=== PATIENT | female | born 1990 | race Caucasian/White ===

== ENCOUNTER → 2017-04-25 | Outpatient (CLI) | payer BC | LOC: SUN.DIA 08:50 | DX: O24.419 Gestational diabetes mellitus in pregnancy, unspecified control (principal); Z3A.31 31 weeks gestation of pregnancy; Z71.3 Dietary counseling and surveillance | CPT/HCPCS: G0108 ==

== ENCOUNTER → 2017-04-27 | Outpatient (CLI) | payer BC ==
[~2017-04-27] MED LIST: DULCOLAX STOOL100 MG PO; MELATONIN1 MG PO; NORCO 325 MG-51 TAB PO; PRENATAL MVI; PROTONIX 40MG T40 MG PO
== END ==
LOC: SUN.DIA 08:45
DX: O24.419 Gestational diabetes mellitus in pregnancy, unspecified control (principal); Z3A.31 31 weeks gestation of pregnancy; Z71.3 Dietary counseling and surveillance
CPT/HCPCS: G0108

== ENCOUNTER 2017-05-02 10:20 | Inpatient (IN) | payer BC ==
[~2017-05-02] VITALS: Ht 165.7 cm; Wt 101.4 kg
[2017-06-24] VITALS (17 sets, daily range): BP systolic 111–1121; BP diastolic 59–82; PULSE 77–120; TEMP 98–98.1
[2017-06-24] MEDS ORDERED: DULCOLAX STOOL100 MG PO (09:24)
[2017-06-24] MEDS ORDERED: PRENATAL MVI (09:24)
[2017-06-24] MEDS ORDERED: PROTONIX 40MG T40 MG PO (09:25)
[2017-06-24] MEDS ORDERED: MELATONIN1 MG PO (09:25)
[2017-06-24] MEDS ORDERED: NORCO 325 MG-51 TAB PO (09:26)
[2017-06-24 10:05] LABS: BASO % 0.2 % (0.0-2.0); EOS # 0.1 (0.0-0.7); EOS % 0.8 % (0-4.0); GRAN # 9.3 (1.4-6.5); GRAN % 71.7 % (42.2-75.2); HEMATOCRIT 37.9 % (37.0-47.0); HEMOGLOBIN 12.8 g/dl (12.5-16.0); LYMPH # 2.7 (1.2-3.4); LYMPH % 20.8 % (20.0-51.0); MEAN CELL VOLUME 87 fl (80.0-100.0); MEAN CORPUSCULAR HEMOGLOBIN 30 pg (27.0-31.0); MEAN CORPUSCULAR HGB CONC 34 g/dl (33.0-37.0); MEAN PLATELET VOLUME 11.2 fl (7.4-10.4); MONO # 0.8 (0.1-0.6); PLATELET COUNT 252 K/mm3 (130-400); RED BLOOD COUNT 4.34 M/mm3 (4.10-5.30); REDCELL DISTRIBUTION WIDTH-CV 13.7 % (11.5-14.5); WHITE BLOOD COUNT 13.1 K/mm3 (4.8-10.8)
[2017-06-24 10:21] LABS: ADJUSTED CALCIUM 9.6 mg/dL (8.4-10.2); ALBUMIN 3.6 gm/dL (3.5-5.0); BILIRUBIN,TOTAL 0.7 mg/dL (0.0-1.0); CALCIUM 9.3 mg/dL (8.4-10.2); CREATININE, serum 0.54 mg/dL (0.52-1.25); POTASSIUM 4.2 mmol/L (3.4-5.0); TOTAL PROTEIN 6.5 gm/dL (6.4-8.2)
[2017-06-25 06:56] LABS: HEMATOCRIT 34.1 % (37.0-47.0); HEMOGLOBIN 11.4 g/dl (12.5-16.0)
[2017-06-25 08:00] VITALS: BP 132/67; PULSE 97; TEMP 98.7
[2017-06-25 18:30] VITALS: BP 138/78; PULSE 85; TEMP 98.1
[2017-06-25 21:00] VITALS: BP 132/80; PULSE 85; TEMP 98.9
[2017-06-26 08:31] VITALS: BP 144/77; PULSE 91; TEMP 98.3
[2017-06-26 15:48] VITALS: BP 136/71; PULSE 90; TEMP 98.5
[2017-06-26 20:10] VITALS: BP 118/72; PULSE 77; TEMP 98.7
[2017-06-27 08:15] VITALS: BP 136/74; PULSE 79; TEMP 98.2
[2017-06-27] MEDS ORDERED: MOTRIN 600600 MG/TAB PO (08:50)
[2017-06-27] MEDS ORDERED: PERCOCET 325 MG1 TA2 PO (08:51)
== END 2017-06-27 13:00 | disposition home or self-care (01) | DRG 766 ==
LOC: EDSTATUS 06-17 07:28 → LDRO 06-17 10:20 → OB 06-24 07:29
PROVIDERS: Obstetrics & Gynecology
PROC: 10D00Z1 Extraction of Products of Conception, Low, Open Approach (ICD-10-PCS; principal; 2017-06-24)
DX: O32.1XX0 Maternal care for breech presentation, not applicable or unspecified (principal); O43.123 Velamentous insertion of umbilical cord, third trimester; O24.420 Gestational diabetes mellitus in childbirth, diet controlled; Z3A.39 39 weeks gestation of pregnancy; O14.04 Mild to moderate pre-eclampsia, complicating childbirth; Z37.0 Single live birth
CPT/HCPCS: J0690; J1885; J2175; J2270; J2370; J2405; J2590; J7120

== ENCOUNTER → 2018-12-18 | Outpatient (CLI) | payer BC ==
[~2018-12-18] MED LIST changes: +MOTRIN 600600 MG/TAB PO; +PERCOCET 325 MG1 TA2 PO
== END ==
LOC: SUN.DIA 10:47
DX: O24.419 Gestational diabetes mellitus in pregnancy, unspecified control (principal); Z3A.35 35 weeks gestation of pregnancy
CPT/HCPCS: G0108

== ENCOUNTER 2019-03-02 09:45 | Inpatient (IN) | payer BC ==
[2019-03-02] VITALS (51 sets, daily range): BP systolic 104–139; BP diastolic 53–93; PULSE 77–131; TEMP 98–99.2
[~2019-03-02] VITALS: Ht 165.1 cm; Wt 100.0 kg
--- NOTE | 2019-03-02 10:00 | NUR ---
0940- Pt arrives on unit, ambulatory, with for labor check. Pt into bathroom to change into gown. 45- Pt into bed, EFM and TOCO on and tracing. Pt states her UCs started around 0500 today. Possible TOLAC if in active labor. States she has not felt baby move much today. Denies complications with except for GDM, diet controlled, states BSs WNL.
--- NOTE | 2019-03-02 10:30 | NUR ---
1018- Roles at bedside, discusses options of TOLAC and repeat C/S. Pt desires JAY, supportive of decision.
--- NOTE | 2019-03-02 11:00 | NUR ---
Sits up for epidural. Breathes through contractions. 1102 Single shot given by anesthesia Kelly [email or web address] Lies down after epidural.
[2019-03-02 11:13] LABS: BASO % 0.1 % (0.0-2.0); EOS % 0.1 % (0-4.0); GRAN # 10.8 (1.4-6.5); GRAN % 79.2 % (42.2-75.2); HEMATOCRIT 38.6 % (37.0-47.0); HEMOGLOBIN 13.4 g/dl (12.5-16.0); LYMPH # 2.1 (1.2-3.4); LYMPH % 15.5 % (20.0-51.0); MEAN CELL VOLUME 90 fl (80.0-100.0); MEAN CORPUSCULAR HEMOGLOBIN 31 pg (27.0-31.0); MEAN CORPUSCULAR HGB CONC 35 g/dl (33.0-37.0); MEAN PLATELET VOLUME 10.7 fl (7.4-10.4); MONO # 0.6 (0.1-0.6); MONO % 4.6 % (1.7-9.3); PLATELET COUNT 259 K/mm3 (130-400); RED BLOOD COUNT 4.27 M/mm3 (4.10-5.30)
--- NOTE | 2019-03-02 11:30 | NUR ---
Rests in bed, alert. States feeling better.
--- NOTE | 2019-03-02 12:45 | NUR ---
Rests in bed, alert. Denies any needs at this time.
--- NOTE | 2019-03-02 14:15 | NUR ---
1413 Roles here, arom done. Moderate amount of clear fluid with bloody show noted. Pad changed and patient cleaned.
--- NOTE | 2019-03-02 16:00 | NUR ---
Rests in bed, alert. Spouse at bedside. Denies any needs at this time.
--- NOTE | 2019-03-02 16:15 | NUR ---
Rests in bed, alert. Repositioned in be with peanut ball.
--- NOTE | 2019-03-02 16:45 | NUR ---
Dr. Cotton here, visits with patient. Dr. Cotton states will be back around 530 for vag exam.
--- NOTE | 2019-03-02 18:00 | NUR ---
Dr. Cotton here, visits with patient. Vag exam done, reports no change. Iupc placed per sterile technique by Dr. Cotton. Repositioned patient, pad changed.
--- NOTE | 2019-03-02 22:00 | NUR ---
1814- Bedside report from Maria Fernanda,RN. on unit/in room at this time for IUPC placement. 1829- VORB to start Pitocin per protocol from . Pitocin infusing at 2 mU/hr. See eMAR. 1914- Recurrent deep variable decels noted on FHR strip. SVE 8-9/90/0. 1999- See Physician Notification. 2029- SVE Complete/0. Practice push x1. updated. 2044- Mullins catheter out. 150ml out. 2054- at bedside and pushing with patient. 2099- RN pushing with patient. remains on L&D unit. 2149- at bedside and pushing with patient. Nursery RN called for delivery. IUPC removed. 2156- of viable baby girl. Cord clamped and cut. Cord blood obtained. NB care assumed by Huong, Nursery RN. Pitocin off. 2201- Spontaneous delivery of placenta. Pitocin infusing at 333 ml/hr. Fundus massaged to firm by . Perineum repaired by . Straight cath performed with 50ml out by . Pericare completed. 2199- PP Recovery started.
[2019-03-03] VITALS: BP 127/59; PULSE 90; TEMP 98.4
[2019-03-03 04:00] VITALS: BP 117/69; PULSE 98; TEMP 98.7
[2019-03-03 06:52] VITALS: BP 120/66; PULSE 86; TEMP 98
[2019-03-03 10:29] VITALS: BP 116/65; PULSE 84
[2019-03-03 16:30] VITALS: BP 125/77; PULSE 87; TEMP 97.6
[2019-03-03 21:15] VITALS: BP 133/65; PULSE 76
[2019-03-04 07:43] VITALS: BP 117/59; PULSE 84; TEMP 98.1
[2019-03-04] MEDS ORDERED: PERCOCET 325 MG1 TA2 PO (09:38)
[2019-03-04] MEDS ORDERED: MOTRIN 800800 MG/TAB PO (09:38)
== END 2019-03-04 12:25 | disposition home or self-care (01) | DRG 807 ==
LOC: LDRO 09:45 → LDR 09:45 → LDRO 09:46 → LDR 09:46 → OB 03-03 00:31
PROVIDERS: ADMIT Obstetrics & Gynecology
PROC: 10E0XZZ Delivery of Products of Conception, External Approach (ICD-10-PCS; principal; 2019-03-02)
PROC: 0KQM0ZZ Repair Perineum Muscle, Open Approach (ICD-10-PCS; 2019-03-02)
DX: O34.211 Maternal care for low transverse scar from previous cesarean delivery (principal); Z37.0 Single live birth; O70.1 Second degree perineal laceration during delivery; Z3A.38 38 weeks gestation of pregnancy; O24.420 Gestational diabetes mellitus in childbirth, diet controlled
CPT/HCPCS: J2590; J2795; J7120

== ENCOUNTER 2023-08-03 09:38 | Outpatient (CLI) | payer OTHER ==
[~2023-08-03] VITALS: Ht 165.1 cm; Wt 113.6 kg
[2023-08-03] VITALS (8 sets, daily range): BP systolic 138–154; BP diastolic 74–85; PULSE 80–86; TEMP 98.7
[~2023-08-03 09:38] MED LIST changes: +MOTRIN 800800 MG/TAB PO
--- NOTE | 2023-08-03 09:45 | NUR ---
Pt arrived on unit ambulatory from clinic due to elevated blood pressures in the office. Pt reports occasional contractions, denies any leaking of fluid or vaginal bleeding and reports normal movement. EFM, toco monitors and serial BP started. Dr. Cotton notified of pt's arrival. See physician notification for details.
[2023-08-03] MEDS ORDERED: LEXAPRO 5MG5 MG PO (10:01)
--- NOTE | 2023-08-03 11:25 | NUR ---
Discharge instructions and follow up care reviewed with pt including no work and resting for today, Dr. Cotton is sending a prescription to her pharmacy for some blood pressure medicine and she will call with the results from labs done today in clinic. Pt verbalized an understanding, agreed with the plan and states no questions or concerns at this time.
== END 2023-08-03 11:38 | disposition home or self-care (01) ==
LOC: LDRO 09:38
DX: O16.3 Unspecified maternal hypertension, third trimester (principal); Z3A.36 36 weeks gestation of pregnancy

== ENCOUNTER 2023-08-05 10:01 | Inpatient (IN) | payer OTHER ==
[~2023-08-05] VITALS: Ht 165.1 cm; Wt 113.6 kg
[2023-08-05] VITALS (46 sets, daily range): BP systolic 116–161; BP diastolic 54–90; PULSE 76–121; TEMP 98.3–99.3
[~2023-08-05 10:01] MED LIST changes: +LEXAPRO 5MG5 MG PO
--- NOTE | 2023-08-05 12:10 | NUR ---
PT AMBULATORY TO UNIT WITH SPOUSE FOR IOL. PT CHANGED INTO GOWN, COMFORTABLE IN BED, QUESTIONS ANSWERED ABOUT IOL PLAN. PT REPORTS GOOD FM, NO LOF, NO VAGINAL BLEEDING, AND FEW CTX THAT ARE IRREGULAR AND NOT PAINFUL. PT COMFORTABLE WITH PLAN OF CARE.
--- NOTE | 2023-08-05 12:40 | NUR ---
. ROLES AT BEDSIDE TO EVALUATE PATIENT. DTR AND EDEMA ASSESSED. . ROLES COMFORTABLE WITH POC FOR INDUCTION.
--- NOTE | 2023-08-05 12:55 | NUR ---
1255 DR. TAPIA SVE 2-3//-3. [address] TAPIA, SMALL AMOUNT OF LIGHTLY BLOOD TINGED FLUID. PT TOLERATED WELL. EFM CAT 1.
[2023-08-05] MEDS ORDERED: UNISOM25 MG PO (12:56)
[2023-08-05] MEDS ORDERED: PROCARDIA XL 3030 MG PO (12:56)
[2023-08-05 13:29] LABS: BASO % 0.3 % (0.0-2.0); EOS % 0.4 % (0.0-4.0); GRAN # 7.9 K/mm3 (1.4-6.5); GRAN % 70.4 % (42.2-75.2); HEMATOCRIT 39.8 % (37.0-47.0); LYMPH # 2.4 K/mm3 (1.2-3.4); LYMPH % 21.6 % (20.0-51.0); MEAN CELL VOLUME 91 fl (80.0-100.0); MEAN CORPUSCULAR HEMOGLOBIN 30 pg (27-31); MEAN CORPUSCULAR HGB CONC 33 g/dl (33.0-37.0); MEAN PLATELET VOLUME 11.3 fl (7.4-10.4); MONO # 0.7 K/mm3 (0.1-0.6); MONO % 6.3 % (1.7-9.3); PLATELET COUNT 224 K/mm3 (130-400); REDCELL DISTRIBUTION WIDTH-CV 12.9 % (11.5-14.5)
[2023-08-05 13:44] LABS: ALBUMIN 3.1 gm/dL (3.5-5.0); BILIRUBIN,TOTAL 0.5 mg/dL (0.2-1.2); CALCIUM 9.5 mg/dL (8.4-10.2); CREATININE, serum 0.57 mg/dL (0.57-1.11); POTASSIUM 3.6 mmol/L (3.5-4.5); TOTAL PROTEIN 6.3 gm/dL (6.2-8.1)
--- NOTE | 2023-08-05 15:14 | NUR ---
[id number] RNS AT BEDSIDE DUE TO DIFFICULTY TRACING FHR. SVE AT THIS TIME 3-/-3. CATALINA, RN, IN ROOM TO ATTEMPT FSE PLACEMENT, UNABLE TO PLACE FSE DUE TO BALLOTABLE HEAD. RETURNED PT TO SITTING POSITION AND ABLE TO TRACE EFM BETTER. PT COMFORTABLE. DR. TAPIA NOTIFIED OF SVE.
--- NOTE | 2023-08-05 16:35 | NUR ---
1630 DIE MAKER COLEMAN KEENE AT BEDSIDE. ATTEMPTING TO TRACE EFM DUE TO MATERNAL POSITION AND HABITUS, VS STABLE. 1635 TEST DOSE ADMINISTERED PER COLEMAN DIE MAKER, PT TOLERATED WELL. UNABLE TO TRACE EFM DUE TO MATERNAL POSITION AND HABITUS. PT REPOSITIONED WEDGE LEFT AND COMFORTABLE.
--- NOTE | 2023-08-05 16:58 | NUR ---
[id number] 3 RNS AT BEDSIDE DUE TO FHR. FSE PLACED. PITOCIN TURNED OFF, O2 PLACED, PT MOVED TO KNEE CHEST POSITION. SVE 6-7/90/0. ONE DOSE OF EPHEDRINE GIVEN. DR. TAPIA NOTIFIED.
--- NOTE | 2023-08-05 18:30 | NUR ---
1827: Variable decel observed with good recovery and variability, pt comfortable on her left side at this time.
--- NOTE | 2023-08-05 18:45 | NUR ---
1838: Variable decel to the 60's observed by this RN. I enter pt room and reposition pt to semi-fowlers and obtain consent to do a cervical exam. 184: SVE ; Pt repositioned back to her left side and is comfortable. Plan of care ongoing.
--- NOTE | 2023-08-05 19:00 | NUR ---
1851: Variable decel observed by this RN, pt on left side with peanut ball between her ankles. Pt repositioned to right side with peanut ball between her ankles. Good recovery noted with repositioning. 1859: Variable decel observed by this RN while at bedside monitoring pt and status. Pt reports being comfortable and RN remains at bedside. Plan of care ongoing.
--- NOTE | 2023-08-05 19:30 | NUR ---
1918: Variable decel observed with good recovery and variability. Pt comfortable with her epidural and denies any increased pelvic pressure. RN at bedside.
--- NOTE | 2023-08-05 20:00 | NUR ---
1949: This RN SVE at this time 0, Samantha Shipman RN at bedside also to assist with repositioning pt. 1952: During cervical exam, this RN noted that the FSE that was in place is no longer attached to fetus. Samantha Siddiqi RN replaces FSE at this time with pt consent. Obtains an SVE behind this RN to confirm and reports pt is an anterior lip. 1954: Pt pulled up in bed and repositioned to [facility] with her legs frogged. Pt reports being comfortable in this position.
--- NOTE | 2023-08-05 20:15 | NUR ---
Early decels observed on tracing during this time period. Pt is in high fowlers with legs frogged to assist in dilation and descent. Variable decels also observed at the end of this tracing time period. Pt comfortable and denies needs.
--- NOTE | 2023-08-05 20:30 | NUR ---
2019: Late decel observed, good recovery and variability noted. Pt repositioned to attempt to correct decel. 2027: Variable decel observed, good recovery and variability observed. Pt repositioned again to attempt to correct the decels.
--- NOTE | 2023-08-05 20:45 | NUR ---
FHT continue to trace variable decels during this tracing. Pt repositioned and fluid bolus given and no improvement observed. Pt continues to be comfortable with epidural and denies any needs at this time. Plan of care ongoing.
--- NOTE | 2023-08-05 21:30 | NUR ---
2116: Pitocin restarted at this time at [address] Roles' phone order. Pt remains comfortable with her epidural and refuses to change position at this time. 3rd liter of LR also started at this time. 2117: Fetus continues to have intermittent variable decels during this tracing. Dr Roles continued to be made aware of decels that are occuring.
--- NOTE | 2023-08-05 21:45 | NUR ---
Fetus continues to have intermittent variable decels during this tracing. Pt remains in partial oneil/high correia's with legs frogged at this time.
--- NOTE | 2023-08-05 22:00 | NUR ---
Intermittent variable decels continue occuring on tracing during this time. Pt continues to be in oneil/high fowlers and reporting she is comfortable and does not want to be repositioned. Pitocin continues to infuse. Plan of care ongoing.
--- NOTE | 2023-08-05 22:15 | NUR ---
tracing continues to trace intermittent variable decels during this tracing. Pt remains in oneil/high fowlers currently and Dr Roles aware of status.
--- NOTE | 2023-08-05 22:30 | NUR ---
Intermittent variables continue to occur during this tracing. Pt continues to wish to remain in her current position for comfort. RN at bedside monitoring status.
--- NOTE | 2023-08-05 22:45 | NUR ---
Pt continues to be monitored for recurrent variable decels. Pt remains in oneil/high correia's for comfort. Pt denies any pelvic pressure or urge to push when asked. 5: SVE at this time is 10/100/0 and pt informed I would let Dr Cotton know she is complete and then begin pushing with pt. Pt verbalizes understanding and plan of care ongoing.
--- NOTE | 2023-08-05 23:00 | NUR ---
2250: Pt and RN discuss pushing techniques at this time. Pt tells this RN that she remembers she pushed well previously by pulling her legs back and counting to ten. RN informs pt that she can push that way and see how she progresses. 2256: RN begins pushing with pt at this time. Pt pushing well with ctx, fetus has variable decels with each ctx with good recovery when finished pushing. Pt reports feeling good with her stamina.
--- NOTE | 2023-08-05 23:15 | NUR ---
RN at bedside, continues to support pt with pushing. Spouse at bedside supporting pt also. Variable decels occur each time pt pushes with a ctx. Fetus has good recovery and variability after decel.
--- NOTE | 2023-08-05 23:30 | NUR ---
Pt continuing to push with RN and spouse for support. Variable decels continue to occur with each push pt does with each ctx. Fetus has good recovery and variability after ctx is complete. Pt coping well with pushing.
--- NOTE | 2023-08-05 23:45 | NUR ---
2331: FSE off at this time. RN at bedside monitoring fetus and pt status. 2333: US placed on pt at this time to monitor FHT. Pt resting with ctx during this time. RN unable to determine decels during this tracing time frame due to US placement and maternal pushing. I remain at bedside monitoring pt and fetus.
[2023-08-06] VITALS (14 sets, daily range): BP systolic 113–158; BP diastolic 55–90; PULSE 92–133; TEMP 97.1–98.8
--- NOTE | 2023-08-06 | NUR ---
RN unable to determine baseling HR, accels or decels during this tracing due to pt pushing with ctx and US positioning. RN able to obtain FHT by holding US in place. Pt continues to cope well with pushing and labor.
--- NOTE | 2023-08-06 00:15 | NUR ---
0000: Dr Cotton notified that pt is ready for delivery. 0005: Dr Cotton at bedside, bed taken down to prep for delivery. Pt breathing through ctx at this time. 0015: Live, male fetus delivered via , placed on mom's abdomen, dried and stimulated. Spontaneous, intermittent crying observed, delayed cord clamping performed. 0016: Cord clamped by Dr Cotton and cut by father. Infant placed skin to skin with mother and care taken over by nursery RN.
[2023-08-06] MEDS ORDERED: MOTRIN 800800 MG/TAB PO (09:37)
[2023-08-07 08:34] VITALS: BP 139/91; PULSE 95; TEMP 98.3
[2023-08-07] MEDS ORDERED: ADALAT CC60 MG PO (09:25)
[2023-08-07 10:57] VITALS: BP 134/81
== END 2023-08-07 13:37 | disposition home or self-care (01) | DRG 807 ==
LOC: LDR 10:01 → OB 08-06 03:10
PROVIDERS: ADMIT Obstetrics & Gynecology
PROC: 10E0XZZ Delivery of Products of Conception, External Approach (ICD-10-PCS; principal; 2023-08-06)
PROC: 0KQM0ZZ Repair Perineum Muscle, Open Approach (ICD-10-PCS; 2023-08-06)
PROC: 10907ZC Drainage of Amniotic Fluid, Therapeutic from Products of Conception, Via Natural or Artificial Opening (ICD-10-PCS; 2023-08-06)
PROC: 3E033VJ Introduction of Other Hormone into Peripheral Vein, Percutaneous Approach (ICD-10-PCS; 2023-08-06)
DX: O14.14 Severe pre-eclampsia complicating childbirth (principal); Z37.0 Single live birth; O70.1 Second degree perineal laceration during delivery; O16.5 Unspecified maternal hypertension, complicating the puerperium; O24.420 Gestational diabetes mellitus in childbirth, diet controlled; O34.211 Maternal care for low transverse scar from previous cesarean delivery; O99.343 Other mental disorders complicating pregnancy, third trimester; F32.A Depression, unspecified; F41.9 Anxiety disorder, unspecified; O69.81X0 Labor and delivery complicated by cord around neck, without compression, not applicable or unspecified; Z3A.36 36 weeks gestation of pregnancy
CPT/HCPCS: J2405; J2795; J7120